=== PATIENT | male | born 1995 | race Caucasian/White ===

== ENCOUNTER → 2020-05-16 09:14 | Outpatient (CLI) | payer OTHER, SELFPAY ==
[2020-05-16 09:41] LABS: Hematocrit 44.6 % (40-54); Hemoglobin 15.1 g/dL (13.0-16.5); Mean Corp Hgb Conc 33.9 g/dL (32-36); Mean Corpuscular Hgb 30.7 pg (27.0-32.0); Mean Corpuscular Volume 90.7 fL (80-94); Mean Platelet Vol. 9.5 fl (6.2-12.0); Platelet Count 212 K/mm3 (150-450); RBC Distribution Width CV 12.2 % (11.6-14.6); RBC Distribution Width SD 40.4 fl (35.1-43.9); Red Blood Count 4.92 M/mm3 (4.6-6.2); White Blood Count 4.5 K/mm3 (4.4-11.0)
[2020-05-16 10:40] LABS: Anion Gap 4 (5-15); BUN 28 mg/dL (7-18); BUN/Creat Ratio 24.8 RATIO (10-20); Chloride 109 mmol/L (98-107); Creatinine, Serum 1.13 mg/dL (0.70-1.30); EST Glomerular Filtration Rate 84 mL/min (>60); Est Glom Filt Rate - Afr Amer 101 mL/min (>60); Glucose 92 mg/dL (74-106); Potassium 4.4 mmol/L (3.5-5.1); Sodium Level 140 mmol/L (136-145); Thyroid Stim Hormone (TSH) 0.91 uIU/mL (0.358-3.74)
== END ==
PROVIDERS: PCP Family Medicine; Referring Provider Family Medicine; Visit Provider Family Medicine
DX: R06.00 Dyspnea, unspecified (principal)
CPT/HCPCS: 36415; 80048; 84443; 85027

== ENCOUNTER → 2020-05-19 09:04 | Outpatient (CLI) | payer OTHER, SELFPAY ==
--- NOTE | 2020-05-19 09:11 | ECHOD_ITS ---
Reason For Study: Dyspnea on exertion Procedure This was a 2D Doppler, Color Flow transthoracic echocardiogram. Exam performed in department. Left Ventricle Normal LV size. Left ventricular systolic function is normal. The estimated ejection fraction is 65 %. Normal diastology for age. No regional wall motion abnormalities noted. Right Ventricle Normal RV size. Normal systolic function. Atria Normal left atrium. Normal right atrium. Mitral Valve Normal mitral valve. Tricuspid Valve Normal tricuspid valve. Mild tricuspid valve insufficiency. Pulmonary artery systolic pressure is 30 mmHg. Aortic Valve Normal aortic valve. Trisinus/trileaflet aortic valve. Pulmonic Valve Normal pulmonic valve. Great Vessels Normal aortic root. The pulmonary artery is normal size. Normal inferior vena cava. Pericardium/Pleural No pericardial effusion. MMode/2D Measurements & Calculations LVIDd: 4.8 cm IVSd: 1.0 cm Ao root diam: 3.3 cm LVIDs: 2.7 cm LVPWd: 0.93 cm LA dimension: 3.9 cm FS: 43.8 % LAV(MOD-bp): 54.7 ml LA A4 area: 18.2 cm2 RA A4 area: 19.6 cm2 LAV(MOD-bp) Indexed: 26.8 ml/m2 LAV(MOD-sp2): 57.8 ml LAV(MOD-sp4): 46.3 ml Time Measurements MV dec time: 0.21 sec Doppler Measurements & Calculations MV E max kevin: 84.2 cm/sec Lat Peak E' Kevin: 18.7 cm/sec Med Peak E' Kevin: 14.2 cm/sec MV A max kevin: 47.6 cm/sec E/E' lat: 4.5 E/E' med: 5.9 MV E/A: 1.8 MV V2 max: 88.4 cm/sec MV P1/2t max kevin: 88.4 cm/sec Ao V2 max: 154.1 cm/sec MV max P.1 mmHg MV P1/2t: 83.8 msec Ao max P.5 mmHg MV V2 mean: 41.7 cm/sec MV dec slope: 309.1 cm/sec2 MV mean P.87 mmHg MVA(P1/2t): 2.6 cm2 MV V2 VTI: 27.6 cm LV V1 max: 140.4 cm/sec PA V2 max: 124.2 cm/sec TR max kevin: 260.2 cm/sec LV V1 max P.9 mmHg TR max P.1 mmHg Interpretation Summary Normal LV size. Left ventricular systolic function is normal. The estimated ejection fraction is 65 %. Normal diastology for age. Pulmonary artery systolic pressure is 30 mmHg. Structurally normal valves. Ordering Physician: Joseph Gray Referring Physician: Joseph Gray Performed By: Taz Mckeon RCS
== END ==
PROVIDERS: PCP Family Medicine; Referring Provider Family Medicine; Visit Provider Family Medicine
DX: R06.00 Dyspnea, unspecified (principal)
CPT/HCPCS: 93306

== ENCOUNTER → 2020-05-27 06:24 | Outpatient (CLI) | payer OTHER, SELFPAY ==
--- NOTE | 2020-05-27 07:57 | STRESSREP ---
Stress Test Report Date: 05-27-2020 Procedure: Exercise tolerance test/imaging study Indications: Chest pain; fatigue; dizziness Consent: Per the patient Procedure: The patient exercised on a Ton protocol for 12 minutes completing Stage IV achieving a peak heart rate of 173 bpm (88% predicted maximal heart rate) with a peak blood pressure 184/66 mmHg and a peak MET capacity of 13 METs. The baseline ECG demonstrated normal sinus rhythm. The peak exercise ECG demonstrated no obvious ECG changes. There were no cardiac dysrhythmias pretest, during exercise, or recovery. The functional capacity was considered good. There was a report of mild chest pain in early recovery with subsequent spontaneous resolution. The examination was discontinued secondary to dyspnea. Impression: 1. Technically adequate (percent predicted maximal heart rate greater than 85%) exercise tolerance test 2. Peak exercise ECG with no obvious ECG changes 3. There were no cardiac dysrhythmias pretest, during exercise, or recovery 4. Nuclear images pending Myocardial perfusion imaging study: Technique: The patient was injected with 11.9 mCi of technetium 99m Cardiolite and subsequently rest SPECT Cardiolite nuclear imaging was obtained in the horizontal long, vertical long, and short axis views. The patient exercised on a Ton protocol for 12 minutes completing Stage IV achieving a peak heart rate of 173 bpm (88% predicted maximal heart rate) with a peak blood pressure 184/66 mmHg and a peak MET capacity of 13 METs. The patient was injected with 32.1 mCi of technetium 99m Cardiolite and subsequently stress SPECT Cardiolite nuclear imaging was obtained in the horizontal long, vertical long, and short axis views. A gated Cardiolite study at peak stress was obtained. Interpretation: Rest and stress SPECT Cardiolite nuclear imaging status post realignment, normalization, and attenuation correction, demonstrates the appearance of extracardiac/gastrointestinal tracer uptake near the inferior segments more prominent at rest as opposed to stress and the appearance of relative uniform tracer uptake and myocardial perfusion appearing within normal limits. There is end systolic thickening and brightening. The gated Cardiolite study demonstrates myocardial thickening and inward wall motion. The reported LVEF is 62%. Impression: 1. Rest and stress SPECT Cardiolite nuclear imaging demonstrate relative uniform tracer uptake and myocardial perfusion appearing within normal limits. 2. The gated Cardiolite study reports an LVEF of 62%. This note was generated with [employer] software. It may contain incorrect words, spelling, and punctuation that were not noted in checking the note before signing.
== END ==
PROVIDERS: PCP Family Medicine; Referring Provider Family Medicine; Visit Provider Family Medicine
DX: R07.9 Chest pain, unspecified (principal)
CPT/HCPCS: 78452; 93017; A9500; A4216

== ENCOUNTER → 2020-07-11 14:52 | Outpatient (CLI) | payer OTHER, SELFPAY ==
[2020-07-03 10:10] VITALS: BMI 30.7
--- NOTE | 2020-07-11 15:00 | RAD_ITS ---
STUDY: X-RAY CHEST REASON FOR EXAM: Male, 24 years old. SOB TECHNIQUE: 2 views COMPARISON: None. FINDINGS: The lungs are clear and expanded. There is no demonstrated pleural abnormality. Normal size heart. Normal mediastinum and ryne. Normal visualized pulmonary arteries. Normal visualized aortic arch and descending thoracic aorta. Normal visualized thoracic spine. Normal visualized ribs, clavicles, and shoulders. There is no demonstrated abnormality of the visualized soft tissue structures of the upper abdomen. RAD/Chest PA and Lateral IMPRESSION: Normal x-ray examination of the chest. Electronically Signed: Sheron Mckeon MD at 15:46 EDT , Service support ,
== END ==
PROVIDERS: PCP Family Medicine; Referring Provider Nurse Practitioner Family; Visit Provider Nurse Practitioner Family
DX: R06.00 Dyspnea, unspecified (principal)
CPT/HCPCS: 71046

== ENCOUNTER → 2020-08-01 07:52 | Outpatient (CLI) | payer OTHER, SELFPAY ==
[2020-07-03 10:10] VITALS: BMI 30.7
--- NOTE | 2020-08-01 07:55 | CT_ITS ---
STUDY: CT CHEST WITH CONTRAST REASON FOR EXAM: Male, 24 years old. Dyspnea on exertion RADIATION DOSAGE (If Supplied By Facility): CTDIvol = ( 15.65 ) mGy, DLP = ( 554.90 ) mGycm TECHNIQUE: Transaxial imaging was performed following intravenous administration of IV 100mL Isovue-300. Multiplanar coronal and sagittal images were reformatted. Individualized dose optimization techniques were used for this CT. COMPARISON: None. FINDINGS: The lungs are normal. There is no demonstrated pleural abnormality. Normal heart and pericardium. Normal mediastinum. Normal hilar regions. Normal enhanced pulmonary arteries. Normal aorta arch and descending thoracic aorta. Normal osseous structures. There is no demonstrated abnormality of the visualized upper abdomen. CT/Chest WITH Contrast IMPRESSION: Normal enhanced CT Chest examination. Electronically Signed: João Vale MD at 10:43 EDT , Service support ,
--- NOTE | 2020-08-03 07:55 | PFT ---
INTRODUCTION: The patient is a 24-year-old male that presents for pulmonary function studies secondary to a diagnosis of dyspnea. Respiratory therapy reports good patient effort. Bronchodilators were used during testing. INTERPRETATION: Forced expiration spirometry demonstrates no evidence of a large airways obstructive ventilatory defect. There was no significant response to aerosolized bronchodilators. Spirograms are of good quality and plateau normally. The respiratory flow volume loop is normal. Body plethysmography was performed and reveals lung volumes to be within normal limits. Diffusing capacity by single breath CO is also within normal limits. IMPRESSION: Grossly normal pulmonary function studies.
== END ==
PROVIDERS: PCP Family Medicine; Visit Provider Internal Medicine Cardiovascular Disease
DX: R06.00 Dyspnea, unspecified (principal); R00.2 Palpitations; R42 Dizziness and giddiness
CPT/HCPCS: 71260; 93225; 94060; 94726; 94729; Q9967

== ENCOUNTER 2020-09-08 16:42 | Emergency (ER) | payer OTHER, SELFPAY ==
[2020-07-03 10:10] VITALS: BMI 30.7
[2020-09-08 16:43] VITALS: BP 143/79; PULSE 65; RESP 16; TEMP 36.8; O2SAT 98; BMI 30.4
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
[2020-09-08 17:35] LABS: Absolute Lymphocyte Count 1.76 X10^3/uL (0.83-4.51); Absolute Neutrophil Count 3.4 X10^3/uL (2.0-7.7); Basophil# 0.06 X10^3/uL; Eosinophil# 0.29 X10^3/uL; Eosinophils% 4.8 % (0-5); Hematocrit 47.2 % (40-54); Hemoglobin 15.9 g/dL (13.0-16.5); Lymphocyte # 1.76 X10^3/ul (0.83-4.51); Lymphocyte % 28.9 % (19-41); Mean Corp Hgb Conc 33.7 g/dL (32-36); Mean Corpuscular Hgb 30.6 pg (27.0-32.0); Mean Corpuscular Volume 90.8 fL (80-94); Mean Platelet Vol. 9.9 fl (6.2-12.0); Monocyte# 0.55 X10^3/uL; NRBC Flagged by Analyzer 0 % (0-5); Neutrophil # 3.42 X10^3/uL (2.7-7.7); Neutrophil % 56.1 % (47-70); Platelet Count 239 K/mm3 (150-450); RBC Distribution Width CV 12.2 % (11.6-14.6); RBC Distribution Width SD 40.4 fl (35.1-43.9); White Blood Count 6.1 K/mm3 (4.4-11.0)
[2020-09-08 17:48] LABS: Anion Gap 4 (5-15); BUN 17 mg/dL (7-18); BUN/Creat Ratio 15.3 RATIO (10-20); Calcium,Total 9.7 mg/dL (8.5-10.1); Chloride 105 mmol/L (98-107); Creatinine, Serum 1.11 mg/dL (0.70-1.30); EST Glomerular Filtration Rate 85 mL/min (>60); Est Glom Filt Rate - Afr Amer 103 mL/min (>60); Estimated Creatinine Clearance 98.42 ml/min; Glucose 96 mg/dL (74-106); Potassium 3.6 mmol/L (3.5-5.1); Sodium Level 140 mmol/L (136-145)
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
--- NOTE | 2020-09-08 19:02 | ED.RN ---
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
[2020-09-08] MEDS: Acetaminophen 500 MG Tablet 1000 MG PO (19:42)
[2020-09-08 20:01] VITALS: PULSE 62; RESP 16; TEMP 36.3; O2SAT 98
== END 2020-09-08 20:02 | disposition home or self-care (01) ==
PROVIDERS: Emergency Provider Emergency Medicine; PCP Family Medicine
DX: S06.0X0A Concussion without loss of consciousness, initial encounter (principal); S20.219A Contusion of unspecified front wall of thorax, initial encounter; S40.012A Contusion of left shoulder, initial encounter; Y92.410 Unspecified street and highway as the place of occurrence of the external cause; V53.5XXA Driver of pick-up truck or van injured in collision with car, pick-up truck or van in traffic accident, initial encounter; Y99.9 Unspecified external cause status; Q63.1 Lobulated, fused and horseshoe kidney
CPT/HCPCS: 70450; 71260; 72125; 74177; 80048; 85025; 99284; Q9967

== ENCOUNTER 2022-03-30 01:34 | Emergency (ER) | payer OTHER, SELFPAY ==
[2022-03-30 01:34] VITALS: BP 154/97; PULSE 87; RESP 16; TEMP 36.6; O2SAT 97; BMI 33.0
[2022-03-30] MEDS: Gabapentin 300 MG Capsule PO (02:26)
[2022-03-30] MEDS: predniSONE 20 MG Tablet 40 MG PO (02:26)
[2022-03-30] MEDS: diazePAM 5 MG Tablet PO (02:26)
--- NOTE | 2022-03-30 02:35 | ED.VIS.BACK ---
HPI History of Present Illness Chief Complaint: Back Informant: patient Narrative Narrative: Worsening lower back pain this evening. He works laying concrete. States had mild symptoms 6 days ago. Symptoms worse with movement. Symptoms progressing over the last few days went to chiropractor yesterday. States attempted adjustments. He states had x-rays done in the chiropractor office reporting narrowing at L4-L5. He states this evening he noted some transient pain into his right thigh down to his great toe. Denies weakness. Denies loss of bowel or bladder control. Took 2 rounds of ibuprofen last dose was 5 hours ago. Denies any allergies. States had mild back pain in the past however less significant. Prior similar symptoms: Yes [facility] Medical History (Updated 03/30/22 @ 02:[address] Kimo Viera DO) Dyspnea on exertion Home Medications diazepam 5 mg tablet 5 mg PO Q8 PRN Muscle Spasm #12 tabs 03/30/22 [Rx Last Taken Unknown] dupilumab 300 mg/2 mL subcutaneous pen injector (Dupixent) 300 mg subcut QWEEK 03/30/22 [History Last Taken Unknown] gabapentin 300 mg capsule 300 mg PO QHS #30 caps 03/30/22 [Rx Last Taken Unknown] prednisone 20 mg tablet 40 mg PO DAILY #10 tabs 03/30/22 [Rx Last Taken Unknown] Allergy/AdvReac Type Severity Reaction Status Date / Time No Known Allergies Allergy Unverified 03/30/22 01:38 Family History Father Hypertension Diabetes CAD (coronary artery disease) Surgical History no surgical history Social History Smoking Status: Never smoker alcohol intake: current details: occasional substance use type: does not use caffeine: Yes Type: coffee Number of servings: 3 ROS ROS ED Constitutional Constitutional ED: Denies chills, fever(s) or sweats Eyes Eyes: Denies change in vision ENT ENT ED: Denies dysphagia or sore throat Cardiovascular Cardiovascular: Denies chest pain, leg edema, palpitations or racing heartbeat Respiratory/Chest Respiratory/Chest: Denies cough, dyspnea or dyspnea on exertion Gastrointestinal Gastrointestinal: Denies abdominal pain, diarrhea, nausea or vomiting Genitourinary Genitourinary ED: Denies dysuria, hematuria or urinary frequency Musculoskeletal Musculoskeletal: Reports back pain; Denies extremity pain or neck pain Integumentary Denies rash or wounds Neurologic Neurologic: Denies headache(s), paresthesias or weakness EXAM Physical Exam Const Vital Signs: 03/30/22 01:34 Temperature 97.8 F Temperature Source Temporal Pulse Rate 87 Respiratory Rate 16 Blood Pressure 154/97 H Blood Pressure Mean 116 Pulse Ox 97 Oxygen Delivery Method Room Air Positive well nourished and well developed Constitutional Narrative: Uncomfortable with movement. Nontoxic. General Appearance ED: well developed HEENT Reports moist mucous membranes normocephalic and atraumatic Eyes PERRL, EOMs intact bilaterally and conjunctivae normal General Eye ED: Yes normal appearance of both eyes Neck no lymphadenopathy and supple General: Negative for tenderness Chest Wall Chest: Negative for tenderness Resp normal respiratory effort and normal air movement Effort and Inspection: symmetric chest movement; Negative for respiratory distress Cardio regular rate, regular rhythm and no murmurs Peripheral Pulses: pulses 2+ throughout GI normal to inspection, nondistended, normoactive bowel sounds and non-tender Palpation: Negative for guarding or rebound tenderness present Back/Spine no CVA tenderness Back/Spine Narrative: No midline tenderness. Tender palpation paralumbar. Straight leg test was negative bilaterally. 1+ patellar reflex bilaterally. Extremity normal to inspection General Extremety ED: Negative for edema or tenderness General Extremity: Negative for edema Neuro oriented x3 and no sensory deficits noted Sensorium / Orientation: awake and alert Skin no rashes or lesions noted and no wounds MDM MDM MDM Narrative Medical decision making narrative: Patient with no cauda equina symptoms. Reporting sciatica symptoms down the right side. Reported outpatient x-ray at chiropractor L4-L5 narrowing. He has no weakness. 1+ patellar reflex. Discussed potential disc herniation with sciatica symptoms with his history. He is able to ambulate. He will be treated symptomatically. He will continue ibuprofen at 600 mL every 6 hours. Started on steroids muscle relaxer and gabapentin due to radicular symptoms. He will follow-up with his PCP. Work note was given. He declines Worker's Compensation at this time. He will discuss with his work for restrictions. All questions were answered. Discharge Plan Triage Chief Complaint: Back ED Provider: Kimo Viera Dx/Rx/DC Orders Clinical Impression: Lumbago with sciatica, right side, Back pain Instructions: ED Sciatica Prescriptions: New prednisone 20 mg tablet 40 mg PO DAILY Qty: 10 0RF gabapentin 300 mg capsule 300 mg PO QHS Qty: 30 0RF diazepam [diazepam] 5 mg tablet 5 mg PO Q8 PRN (Reason: Muscle Spasm) Qty: 12 0RF No Action Dupixent Pen 300 mg/2 mL pen injector 300 mg SUBCUT QWEEK Primary Care Provider: Joseph Gray Referrals: Joseph Gray MD [Primary Care Provider] - 3-5 Days Activity Restrictions/Additional Instructions: Continue your ibuprofen total of 600 mg every 6 hours. Take additional prescription medicines as prescribed. Follow-up with your doctor. Disposition Disposition: Home, Self Care Discharge Date/Time: 03/30/22 03:08
== END 2022-03-30 03:08 | disposition home or self-care (01) ==
PROVIDERS: Emergency Provider Emergency Medicine; PCP Family Medicine; Visit Provider Emergency Medicine
DX: M54.41 Lumbago with sciatica, right side (principal); Z79.52 Long term (current) use of systemic steroids
CPT/HCPCS: 99283

== ENCOUNTER → 2022-04-10 | Outpatient (CLI) | payer OTHER, SELFPAY ==
--- NOTE | 2022-04-10 08:20 | MRI_ITS ---
STUDY: MRI LUMBAR SPINE WITHOUT CONTRAST REASON FOR EXAM: Male, 26 years old. Lumbar strain with radiculopathy TECHNIQUE: Standardized fat and water weighted pulse sequences were obtained in the sagittal and axial planes. COMPARISON: CT abdomen and pelvis with contrast 09/08/2020. FINDINGS: T11-T12 and T12-L1: (Sagittal only). Normal endplates. Normal disc height, hydration and morphology. No ventral extradural defects. Normal central canal and bilateral intervertebral neural foramina. Normal lumbar lordosis. There is no substantial scoliosis. Normal conus medullaris that terminates at the lower L1 vertebral body level. L1-2: Normal endplates. Normal disc height, hydration and morphology. Normal bilateral facet joints. Normal central canal and bilateral lateral recesses. Normal bilateral intervertebral neural foramina. L2-3: Normal endplates. Normal disc height, hydration and morphology. Minimal degenerative cyst in the posterior aspect of the left facet joint. Normal right facet joint. Normal central canal and bilateral lateral recesses. Normal bilateral intervertebral neural foramina. L3-4: Normal endplates. Normal disc height, hydration and morphology. Normal bilateral facet joints. Normal central canal and bilateral lateral recesses. Normal bilateral intervertebral neural foramina. L4-5: Normal endplates. Mild disc space height narrowing. Small right posterior bulging annulus. Normal facet joints. Normal central canal and bilateral lateral recesses. Normal bilateral intervertebral neural foramina. L5-S1: Normal endplates. Mild disc space height narrowing. Normal facet joints. Small left posterior bulging annulus. Normal facet joints. Normal central canal and bilateral lateral recesses. Normal bilateral intervertebral neural foramina. Normal visualized sacral ala. Normal visualized paraspinous soft tissue structures. MRI/Spine Lumbar (Routine) IMPRESSION: 1. No MRI evidence of lumbar extruded disc fragment, spinal stenosis or nerve root displacement. 2. Small right L4-L5 posterior bulging annulus. 3. Small left L5-S1 posterior bulging annulus. 4. Minimal degenerative cyst in the posterior aspect of the left L2-L3 facet joint. Electronically Signed: Sree Lowe MD at 13:16 EST ,
== END | disposition home or self-care (01) ==
LOC: MRI 07:51
PROVIDERS: PCP Family Medicine; Visit Provider Physician Assistant Surgical
DX: S39.012A Strain of muscle, fascia and tendon of lower back, initial encounter (principal); M47.816 Spondylosis without myelopathy or radiculopathy, lumbar region; M51.36 Other intervertebral disc degeneration, lumbar region
CPT/HCPCS: 72148

== ENCOUNTER 2022-06-10 13:30 | Outpatient (RCR) | payer OTHER, SELFPAY ==
--- NOTE | 2022-05-24 16:15 | HP.PTEVAL ---
Patient's Visit Information ELSA STRICKLAND is a 26 year old M referred to Physical Therapy by LINDA Mg with a diagnosis of LUMBAR STRAIN AND DISC BULGING L4-L5. Date of Evaluation: 05/24/22 Physical Therapist: Tricia Bae, PT, Cert MDT - Visit Plan Frequency: 2-3x /Week Duration: 4-6 Weeks Plan: AQUATIC THERAPY FOR PAIN RELIEF, POSTURE CORRECTION/STRENGTHENING, INSTRUCTION IN APPROPRIATE BODY MECHANICS AND ACTIVITY MODIFICATIONS. DLS STARTING WITH A NEUTRAL SPINE PROGRESSING ROM TOLERATED. ANNE-MARIE LE ROM, STRETCHING AND STRENGTHENING. HEP INSTRUCTION. - Subjective Work/Leisure: [employer]. OFF SINCE MAR 30 2022. TENTATIVE RTW DATE IS APPROX 06/25/22. Disability: NO. Present symptoms: CENTRAL AND ANNE-MARIE LOW BACK/SACRUM PAIN (SOMETIMES RIGHT AND SOMETIMES L). PATIENT DENIES LEG SX'S. Present since: 03/24/23. Pain Scale: WORST 5/10, LEAST 3/10. Currently: 4/10. Is it getting better, worse or staying the same: STAYING THE SAME. Commenced as a result of: BENT OVER WORK AND FELT BACK START TO GET TIGHT BUT KEPT GOING. WENT TO WORK THE REST OF THE WEEK BUT PAIN GOT WORSE AND HE COULD BARELY WALK. Symptoms at onset: BACK TIGHTENED UP. Worse: BENDING, WALKING, LIFTING, EVEN SITTING. Better: LAYING DOWN ON BACK OR SIDES. Disturbed sleep: YES. Previous history/Previous treatment: UNREMARKABLE BUT DOES HAVE HX OF SOME INTERMITTENT CHIROPRACTIC BUT NONE FOR ABOUT 2 YEARS BEFORE THIS INJURY. Treatment this episode: CHIRO X 1 VISIT SINCE THIS INJURY - NO BENEFIT REPORTED. MASSAGE THERAPY X 4 SINCE INJURY - IT DEFINATELY LOOSENS IT AND IT FEELS BETTER FOR A LITTLE WHILE BUT THEN I TIGHTEN RIGHT BACK UP. STATES HE HAS TRIED A FEW PAIN MEDICINES WITH SOME BENEFIT. NO LONGER TAKING ANY PRESCRIPTION OR OTC MEDICATIONS PER PATIENT REPORT. CONSULT WITH DR. QUEVEDO - PATIENT REPORTS DR. QUEVEDO RECOMMENDED TRYING PT FOR 4-6 WKS AND DOESN'T FEEL SURGERY IS NECESSARY. STATES DR. QUEVEDO SAID THEY MIGHT NEED TO CONSIDER INJECTION IF NOT BETTER WITH PT. Coughing/sneezing/straining: POSITIVE. Gait: I CAN'T TAKE BIG OF A STEP WITH MY RIGHT LEG. Bowel or Bladder Dysfunction: NO. Accidents: NO. Unexplained weight loss: NO. Imaging: RECENT LUMBAR MRI: STUDY: MRI LUMBAR SPINE WITHOUT CONTRAST. REASON FOR EXAM: Male, 26 years old. Lumbar strain with radiculopathy. TECHNIQUE: Standardized fat and water weighted pulse sequences were. obtained in the sagittal and axial planes. COMPARISON: CT abdomen and pelvis with contrast 09/08/2020. . FINDINGS: T11-T12 and T12-L1: (Sagittal only). Normal endplates. Normal disc height,. hydration and morphology. No ventral extradural defects. Normal central. canal and bilateral intervertebral neural foramina. Normal lumbar lordosis. There is no substantial scoliosis. Normal conus. medullaris that terminates at the lower L1 vertebral body level. L1-2: Normal endplates. Normal disc height, hydration and morphology. Normal bilateral facet joints. Normal central canal and bilateral lateral. recesses. Normal bilateral intervertebral neural foramina. L2-3: Normal endplates. Normal disc height, hydration and morphology. Minimal degenerative cyst in the posterior aspect of the left facet joint. Normal right facet joint. Normal central canal and bilateral lateral. recesses. Normal bilateral intervertebral neural foramina. L3-4: Normal endplates. Normal disc height, hydration and morphology. Normal bilateral facet joints. Normal central canal and bilateral lateral. recesses. Normal bilateral intervertebral neural foramina. L4-5: Normal endplates. Mild disc space height narrowing. Small right. posterior bulging annulus. Normal facet joints. Normal central canal and. bilateral lateral recesses. Normal bilateral intervertebral neural. foramina. L5-S1: Normal endplates. Mild disc space height narrowing. Normal facet. joints. Small left posterior bulging annulus. Normal facet joints. Normal. central canal and bilateral lateral recesses. Normal bilateral. intervertebral neural foramina. Normal visualized sacral ala. Normal visualized paraspinous soft tissue structures. . MRI/Spine Lumbar (Routine). IMPRESSION: 1. No MRI evidence of lumbar extruded disc fragment, spinal stenosis or. nerve root displacement. . 2. Small right L4-L5 posterior bulging annulus. . 3. Small left L5-S1 posterior bulging annulus. . 4. Minimal degenerative cyst in the posterior aspect of the left L2-L3. facet joint. . Electronically Signed: Sree Lowe MD. . PMH/Recent major surgery: UNREMARKABLE. - Objective Sitting/Standing Posture: FAIR. NORMAL LUMBAR LORDOSIS AND NO RELEVANT LATERAL SHIFT. Active Correction of posture: WORSE. Other Observations: INDEP GAIT INTO PT WITHOUT AD OR LOB. SYMMETRICAL WEIGHT BEARING TIME BUT DECREASED ANNE-MARIE STRIDE LENGTH. Sensory deficit: ANNE-MARIE LE LIGHT TOUCH SENSATION IS GROSSLY INTACT AND SYMMETRICAL. ROM deficit: TIGHT ANNE-MARIE HS'S L > RIGHT. Motor deficit: ANNE-MARIE LE'S GROSSLY 5/5 WITH MMT'ING. Reflexes: 2/3 ANNE-MARIE LE'S. Dural Signs: POSITIVE ANNE-MARIE LE'S LEFT > RIGHT. Lumbar mvmt loss: flex - NELLIE. ext - MOD. R SG - MIN. L SG - MIN. PATIENT C/O INCREASED LBP WITH LUMBAR FLEX TESTING RIGHT AWAY AND WITH EXT AT THE END OF THE AVAILABLE ROM. Core strength: FAIR. Palpation: NO ACUTE TENDERNESS WITH LIGHT PALPATION OF LOWER THORACIC, LUMBAR, SACRAL OR ANNE-MARIE HIP AREAS. TREATMENT: NEUROMUSCULAR REEDUCATION - RETRAINING OF MVMT AND POSTURE FOR SITTING, LYING AND STANDING ACTIVITIES. - Balance/Special Test Scores Oswestry Low Back Score: 12 - Goals Goal 1:: DECREASE C/O ANNE-MARIE LB/SACRAL PAIN Goal Time Frame: 4-6 Weeks Goal 2:: IMPROVE PERSONAL CARE, LIFTING, SITTING, STANDING, SOCIAL LIFE, TRAVEL AND WORK/HOMEMAKING FUNCTION Goal Time Frame: 4-6 Weeks Goal 3:: INSTRUCT IN PROPHYLAXIS Goal Time Frame: 4-6 Weeks - Anticipated Interventions Patient/Client Instruction: Educate patient on: Condition, Plan of Care, Risk Factors For the Purpose of:: To improve self management Therapeutic Exercise to Include: Strength training, Body mechanics, Postural training, Flexibilty training, Gait and locomotor training, Neuromotor development, In an aquatic setting, Dynamic Lumbar Stabilization For the Purpose of:: To decrease pain, To increase ROM, To improve muscle performance and motor function, To increase tolerance to activity/condition/position, To improve ability of physical actions for home/community/work/leisure, To improve gait and locomotor functions Thank you for the opportunity to evaluate your patient. For Medicare and Medicare HMO plans, please review the plan of care and approve it. It will need to be FAXED BACK to us at [phone] for Medicare purposes. For Medicare only, by signing this I certify the plan of care. Please let me know if there are questions or concerns regarding this plan of care. Physician Signature: Date:
--- NOTE | 2022-06-10 13:54 | HP.PTREVAL ---
LINDA Mg, It has been my pleasure to treat ELSA STRICKLAND over the last 8 visits for LUMBAR STRAIN AND DISC BULGING L4-L5. Please see the progress note below for an update on the physical therapy plan of care! Subjective: PATIENT REPROTS HE STILL FEELS ALMOST EXACTLY THE SAME HE DID BEFORE HE STARTED PT. STATES HE HAS BEEN DOING EX'S TO TRY TO HELP THIS EVER SINCE HE GOT HURT AND THEY DON'T HURT BUT THEY AREN'T HELPING. HE STATES HIS BACK STILL SUCKS. FOLLOW UP WITH KATRIN VALDEZ PENDING TOMORROW AND NOTHING SCHEDULED FOR FOLLOW UP WITH DR. SAE CRUZ. Objective/Function: PATIENT WAS SEEN TODAY FOR RE-ASSESSMENT OF PROGRESS TOWARD THE SET PT GOALS AND THE NEED FOR FURTHER PHYSICAL THERAPY VS READINESS FOR DISCHARGE. PATIENT IS NOT PROGRESSING AND PHYSICIAN RE-ASSESSMENT IS RECOMMENDED. UPON EXAM TODAY: Sensory deficit: ANNE-MARIE LE LIGHT TOUCH SENSATION IS GROSSLY INTACT AND SYMMETRICAL. ROM deficit: TIGHT R LE HS'S. Motor deficit: ANNE-MARIE LE'S GROSSLY 5/5 WITH MMT'ING. Reflexes: 2/3 ANNE-MARIE LE'S. Dural Signs: NEGATIVE R AND POSITIVE L LE. Lumbar mvmt loss: flex - NELLIE. ext - MOD. R SG - MIN. L SG - MIN. PATIENT C/O INCREASED LBP WITH LUMBAR FLEX TESTING RIGHT AWAY AND WITH EXT AT THE END OF THE AVAILABLE ROM. Core strength: FAIR. Palpation: NO ACUTE TENDERNESS WITH LIGHT PALPATION OF LOWER THORACIC, LUMBAR, SACRAL OR ANNE-MARIE HIP AREAS. OTHER: PATIENT ABLE TO HEEL WALK AND TOE WALK AT LEAST 5 FEET WITHOUT UE ASSIST. Plan Plan: HOLD PT PENDING PHYSICIAN RE-ASSESSMENT. Balance/Gait/Functional tests - Balance/Special Test Scores Oswestry Low Back Score: 15 Goals Goal 1:: DECREASE C/O ANNE-MARIE LB/SACRAL PAIN Goal Time Frame: 4-6 Weeks Goal Progress: Not Progressing Goal 2:: IMPROVE PERSONAL CARE, LIFTING, SITTING, STANDING, SOCIAL LIFE, TRAVEL AND WORK/HOMEMAKING FUNCTION Goal Time Frame: 4-6 Weeks Goal Progress: Not Progressing Goal 3:: INSTRUCT IN PROPHYLAXIS Goal Time Frame: 4-6 Weeks Goal Progress: Not Progressing Anticipated Interventions Patient/Client Instruction: Educate patient on: Condition, Plan of Care, Risk Factors For the Purpose of:: To improve self management Therapeutic Exercise to Include: Strength training, Body mechanics, Postural training, Flexibilty training, Gait and locomotor training, Neuromotor development, In an aquatic setting, Dynamic Lumbar Stabilization For the Purpose of:: To decrease pain, To increase ROM, To improve muscle performance and motor function, To increase tolerance to activity/condition/position, To improve ability of physical actions for home/community/work/leisure, To improve gait and locomotor functions Please do not hesitate to contact me at [phone] by phone or if you have questions or concerns regarding this new plan of care! Sincerely, Tricia Bae, PT, Cert MDT
--- NOTE | 2022-07-21 11:37 | HP.PT.NRP ---
ELSA JAQUELIN STRICKLAND was seen in my office for initial evaluation on 05/24/22. The following Plan of Care was established for this patient: Initial Frequency: 2-3x /Week Initial Duration: 4-6 Weeks Patient/Client Instruction: Educate patient on: Condition, Plan of Care, Risk Factors For the Purpose of:: To improve self management Therapeutic Exercise to Include: Strength training, Body mechanics, Postural training, Flexibilty training, Gait and locomotor training, Neuromotor development, In an aquatic setting, Dynamic Lumbar Stabilization For the Purpose of:: To decrease pain, To increase ROM, To improve muscle performance and motor function, To increase tolerance to activity/condition/position, To improve ability of physical actions for home/community/work/leisure, To improve gait and locomotor functions This patient was last seen in our office 06/10/22. Pertinent comments regarding their Physical therapy will appear below: This patient has not returned to Physical Therapy and is appropriate to return to MD for further follow-up as needed. At this point I will be discontinuing this patient from physical therapy. I would be happy to see this patient again in the future if found appropriate by the physician. Thank you! Tricia Bae, PT, Cert MDT Balance/Gait/Functional tests - Balance/Special Test Scores Oswestry Low Back Score: 15
== END 2022-06-10 19:00 | disposition home or self-care (01) ==
LOC: PT 13:30
PROVIDERS: PCP Family Medicine; Referring Provider Physician Assistant Surgical; Visit Provider Physician Assistant Surgical
DX: M51.36 Other intervertebral disc degeneration, lumbar region (principal); S39.012D Strain of muscle, fascia and tendon of lower back, subsequent encounter
CPT/HCPCS: 97112; 97113; 97162; 97164

== ENCOUNTER → 2022-11-19 | Outpatient (CLI) | payer OTHER, SELFPAY ==
[2022-11-19 15:10] LABS: Absolute Lymphocyte Count 2.08 X10^3/uL (0.83-4.51); Absolute Neutrophil Count 3.1 X10^3/uL (2.0-7.7); Basophil# 0.05 X10^3/uL; Basophil% 0.8 % (0-1); Eosinophil# 0.17 X10^3/uL; Eosinophils% 2.8 % (0-5); Hematocrit 47.2 % (40-54); Hemoglobin 15.4 g/dL (13.0-16.5); Lymphocyte # 2.08 X10^3/ul (0.83-4.51); Lymphocyte % 34.8 % (19-41); Mean Corp Hgb Conc 32.6 g/dL (32-36); Mean Corpuscular Hgb 30.3 pg (27.0-32.0); Mean Corpuscular Volume 92.7 fL (80-94); Mean Platelet Vol. 10.5 fl (6.2-12.0); Monocyte# 0.53 X10^3/uL; Monocyte% 8.9 % (0-10); NRBC Flagged by Analyzer 0 % (0-5); Neutrophil # 3.12 X10^3/uL (2.7-7.7); Neutrophil % 52.2 % (47-70); Platelet Count 222 K/mm3 (150-450); RBC Distribution Width SD 41.1 fl (35.1-43.9); Red Blood Count 5.09 M/mm3 (4.6-6.2)
[2022-11-19 15:32] LABS: ALB/GLOB Ratio 1.1 RATIO (0.9-2.4); AST(SGOT) 20 U/L (15-37); Alanine Aminotransfer ALT/SGPT 30 U/L (16-61); Alkaline Phosphatase 119 U/L (45-117); Anion Gap 6 (5-15); BUN 18 mg/dL (7-18); BUN/Creat Ratio 17.3 RATIO (10-20); Calcium,Total 9.3 mg/dL (8.5-10.1); Chloride 107 mmol/L (98-107); Creatinine, Serum 1.04 mg/dL (0.70-1.30); EST Glomerular Filtration Rate 90 mL/min (>60); Est Glom Filt Rate - Afr Amer 109 mL/min (>60); Globulin 3.6 g/dL (2.2-4.2); Glucose 94 mg/dL (74-106); Potassium 3.8 mmol/L (3.5-5.1); Protein, Total 7.6 g/dL (6.4-8.2); Sodium Level 139 mmol/L (136-145)
== END | disposition home or self-care (01) ==
PROVIDERS: PCP Family Medicine; Visit Provider Family Medicine
DX: R10.9 Unspecified abdominal pain (principal)
CPT/HCPCS: 36415; 80053; 85025

== ENCOUNTER 2022-12-10 18:11 | Emergency (ER) | payer OTHER, SELFPAY ==
[2022-12-10 18:14] VITALS: BP 143/91; PULSE 72; RESP 16; TEMP 36.7; O2SAT 98; BMI 31.8
--- NOTE | 2022-12-10 18:27 | EX.ED.DYSGE1 ---
HPI <LINDA Trujillo - Last Filed: 12/10/22 20:58> History of Present Illness Chief Complaint: Dizziness Narrative Narrative: 27-year-old male with no past medical history presents with several different complaints. Over the last 4 months he has had upper abdominal pain and nausea. He states he does have occasional heartburn but he did not really feel like this. Over the last month he has had generalized head pressure and brain fog with difficulty focusing. He saw his PCP about 2 weeks ago and had blood work showing elevated liver enzymes. He states his symptoms worsened over the last couple days and the headache peaked about 2 days ago and when he called his doctor this afternoon he recommended he go to the ED. He denies visual changes or focal motor or sensory changes. No fever or upper respiratory symptoms. He does not take any medications and denies smoking. He drinks alcohol infrequently. PFSH <LINDA Trujillo - Last Filed: 12/10/22 20:58> [facility] Medical History (Updated 12/10/22 @ 20:50 by LINDA Trujillo) Dyspnea on exertion Home Medications meloxicam 15 mg tablet mg 12/10/22 [History Last Taken Unknown] ondansetron 4 mg disintegrating tablet 4 mg PO Q8H PRN PRN Nausea #10 tabs 12/10/22 [Rx Last Taken Unknown] Allergy/AdvReac Type Severity Reaction Status Date / Time niacin Allergy Rash Verified 12/10/22 18:13 Family History Father Hypertension Diabetes CAD (coronary artery disease) Social History Smoking Status: Never smoker alcohol intake: current details: occasional substance use type: does not use caffeine: Yes Type: coffee Number of servings: 3 ROS <LINDA Trujillo - Last Filed: 12/10/22 20:58> ROS ED ROS Narrative Constitutional: Negative for fever, chills, malaise. Eyes: Negative for visual change. CVS: Negative for palpitations, chest pain, syncope. Respiratory: Negative for shortness of breath, cough. GI: Positive for abdominal pain, nausea. Negative for vomiting, diarrhea, constipation, melena, hematochezia. : Negative for dysuria. Neuro: Positive for headache, negative for motor/sensory dysfunction. EXAM <LINDA Trujillo - Last Filed: 12/10/22 20:58> Physical Exam Narrative Exam Narrative: CONST: Patient sitting in no acute distress. EYES: Normal inspection. PERRLA, EOMI. ENT: Normal inspection, moist mucous membranes. NECK: Normal inspection. RESP: No respiratory distress, CTAB. CVS: Regular rate and rhythm, no murmur, no gallop. ABD: Soft with minimal midline epigastric tenderness, no guarding or rebound, nondistended, no hepatosplenomegaly. SKIN: Color normal, no rash, warm, dry, intact. EXTREMITIES: Normal appearance, no pedal edema. NEURO: Oriented x4. PSYCH: Normal affect. Const Vital Signs: 12/10/22 18:14 12/10/22 18:37 12/10/22 21:00 Temperature 98.1 F Temperature Source Temporal Pulse Rate 72 50 L Respiratory Rate 16 15 Respiratory Effort Normal Non-Labored Blood Pressure 143/91 H 133/78 H Blood Pressure Mean 108 Pulse Ox 98 100 <Dr. Steve Taylor, DO - Last Filed: 12/10/22 21:27> Physical Exam Const Vital Signs: 12/10/22 18:14 12/10/22 18:37 12/10/22 21:00 Temperature 98.1 F Temperature Source Temporal Pulse Rate 72 50 L Respiratory Rate 16 15 Respiratory Effort Normal Non-Labored Blood Pressure 143/91 H 133/78 H Blood Pressure Mean 108 Pulse Ox 98 100 [facility] <LINDA Trujillo - Last Filed: 12/10/22 20:58> [facility] Narrative Medical decision making narrative: History gathered from: Patient and significant other Patient has had 4 months of nausea and upper abdominal pain and about a month of head pressure and brain fog. He appears well and nontoxic. Vital signs unremarkable. Regarding his headache he is neurologically intact and has no signs of meningismus. CT brain was obtained and shows no acute findings. He had minimal epigastric pain on exam with no peritoneal signs. CBC, CMP, lipase are all unremarkable. He has no RUQ tenderness and negative Mckenna sign so I do not think he needs an emergent ultrasound. I discussed wide differential including GERD, PUD, biliary colic among others. I prescribed Zofran as this helped his nausea here and recommended OTC pain relievers and follow-up with his primary care doctor. He was agreeable with this plan and discharged in stable condition. Lab Data Attestation: I reviewed the patient's lab results. Labs: Laboratory Results - last 24 hr 12/10/22 18:35 WBC 4.4 RBC 4.87 Hgb 14.8 Hct 44.3 MCV 91.0 MCH 30.4 MCHC 33.4 RDW Std Deviation 39.9 RDW Coeff of Bin 11.9 Plt Count 219 MPV 10.2 Immature Gran % (Auto) 0.000 Neut % (Auto) 49.4 Lymph % (Auto) 36.8 [place] % (Auto) 11.1 H Eos % (Auto) 2.0 Baso % (Auto) 0.7 Absolute Neuts (auto) 2.2 Absolute Lymphs (auto) 1.62 Nucleated RBC % 0 Sodium 139 Potassium 3.8 Chloride 107 Carbon Dioxide 28.0 Anion Gap 4 L BUN 17 Creatinine 1.17 Estim Creat Clear Calc 94.00 Est GFR (MDRD) Af Amer 95 Est GFR (MDRD) Non-Af 79 BUN/Creatinine Ratio 14.5 Glucose 91 Calcium 9.6 Total Bilirubin 0.60 AST 17 ALT 24 Alkaline Phosphatase 98 Total Protein 7.3 Albumin 4.3 Globulin 3.0 Albumin/Globulin Ratio 1.4 Lipase 23 Radiography Diagnostic Testing: Clinical Impression(s) from Imaging Studies Brain CT 12/10/22 19:45 IMPRESSION: Negative head/brain CT without intravenous contrast. There has been no change from the reference exam. Electronically Signed: Vijay Jiménez MD at 20:28 EDT , <Dr. Steve Taylor, DO - Last Filed: 12/10/22 21:27> [facility] Lab Data Labs: Laboratory Results - last 24 hr 12/10/22 18:35 WBC 4.4 RBC 4.87 Hgb 14.8 Hct 44.3 MCV 91.0 MCH 30.4 MCHC 33.4 RDW Std Deviation 39.9 RDW Coeff of Bin 11.9 Plt Count 219 MPV 10.2 Immature Gran % (Auto) 0.000 Neut % (Auto) 49.4 Lymph % (Auto) 36.8 [place] % (Auto) 11.1 H Eos % (Auto) 2.0 Baso % (Auto) 0.7 Absolute Neuts (auto) 2.2 Absolute Lymphs (auto) 1.62 Nucleated RBC % 0 Sodium 139 Potassium 3.8 Chloride 107 Carbon Dioxide 28.0 Anion Gap 4 L BUN 17 Creatinine 1.17 Estim Creat Clear Calc 94.00 Est GFR (MDRD) Af Amer 95 Est GFR (MDRD) Non-Af 79 BUN/Creatinine Ratio 14.5 Glucose 91 Calcium 9.6 Total Bilirubin 0.60 AST 17 ALT 24 Alkaline Phosphatase 98 Total Protein 7.3 Albumin 4.3 Globulin 3.0 Albumin/Globulin Ratio 1.4 Lipase 23 Radiography Diagnostic Testing: Clinical Impression(s) from Imaging Studies Brain CT 12/10/22 19:45 IMPRESSION: Negative head/brain CT without intravenous contrast. There has been no change from the reference exam. Electronically Signed: Vijay Jiménez MD at 20:28 EDT , Treatment and Re-Evaluation :: I have personally performed a face to face assessment of the patient and have reviewed the CLHOÉ Note. I performed a substantive portion of the visit including all aspects of the following. My beltran findings include: History: Patient presents with upper abdominal pain and head ache that has been constant for the past 3 weeks. Patient states his headache feels like a pressure. Patient states his abdominal pain feels more like a dull ache. Patient admits to some nausea and decreased appetite. Patient denies any vomiting. Patient denies any diarrhea or constipation. Patient denies any radiation of his pain. Patient denies any diplopia. Patient states his vision is out of focus at times. Patient admits to some mild neck pain. Patient denies any dysuria or hematuria. Exam: Vital signs are stable. Patient is afebrile. Patient is in no acute distress. Oral mucosa is pink and moist. Neck is supple. Trachea is midline. Pupils are equal, round, and reactive to light bilaterally. Extraocular muscles are intact. There is no tenderness to percussion over the frontal or maxillary sinuses. Heart was regular rate and rhythm. Lungs are clear and equal bilaterally. Abdomen is soft. Bowel sounds are normal. There is mild tenderness over the epigastric area. There is no rebound or guarding noted. Cranial nerves II through XII are intact. There are no focal motor or sensory deficits noted. Medical Decision Making: Differential diagnosis includes gastritis, gastric ulcer, duodenal ulcer, pancreatitis, sinusitis, viral illness, and stroke. CT scan of the brain will be obtained to assess for stroke and intracranial bleeding. CBC will be obtained to assess for leukocytosis and anemia. Comprehensive metabolic profile will be obtained to assess for hepatic function, renal function, and electrolyte abnormality. Lipase will be obtained to assess for pancreatitis. COVID-19 antigen will be obtained to assess for COVID-19 infection. Influenza A and influenza B antigens will be obtained to assess for influenza infection. CBC was reviewed and was within normal limits. Comprehensive metabolic profile was reviewed and was within normal limits. Lipase was reviewed and was normal. Influenza A and influenza B antigens were reviewed and were negative. COVID-19 rapid antigen was reviewed and was negative. CT scan of the brain was obtained. There is no acute intracranial abnormality. This was interpreted by the radiologist and was also independently reviewed by myself. Patient was advised of his findings. Patient was instructed to follow-up with his primary care physician in 5 to 7 days for further evaluation. Patient understood and was agreeable with the plan. All questions were answered. Discharge Plan Triage Chief Complaint: Dizziness ED Midlevel Provider: Any Marino ED Provider: Steve Taylor Dx/Rx/DC Orders Clinical Impression: Chronic headache, Abdominal pain Instructions: Abdominal Pain, Self-Care for Headaches Prescriptions: New ondansetron 4 mg tablet,disintegrating 4 mg PO Q8H PRN PRN (Reason: Nausea) Qty: 10 0RF No Action meloxicam 15 mg tablet Patient Comments: TAKE 1 TABLET BY MOUTH ONCE DAILY WITH FOOD Primary Care Provider: Annalise Peterson Referrals: Annalise Peterson MD [Primary Care Provider] - Activity Restrictions/Additional Instructions: Today all of your testing including a CT brain scan looked within normal limits. I recommend following up with your primary care doctor. Regarding your frequent upper abdominal pain this may be GERD or gallbladder related and I recommend dietary changes and [id number] Pepcid or omeprazole as needed. Disposition Disposition: Home, Self Care Discharge Date/Time: 12/10/22 21:07
[2022-12-10] MEDS: Ondansetron 4 MG/2 ML Vial IV (18:35)
[2022-12-10 18:55] LABS: Absolute Lymphocyte Count 1.62 X10^3/uL (0.83-4.51); Absolute Neutrophil Count 2.2 X10^3/uL (2.0-7.7); Basophil# 0.03 X10^3/uL; Basophil% 0.7 % (0-1); Eosinophil# 0.09 X10^3/uL; Hematocrit 44.3 % (40-54); Hemoglobin 14.8 g/dL (13.0-16.5); Lymphocyte # 1.62 X10^3/ul (0.83-4.51); Lymphocyte % 36.8 % (19-41); Mean Corp Hgb Conc 33.4 g/dL (32-36); Mean Corpuscular Hgb 30.4 pg (27.0-32.0); Mean Platelet Vol. 10.2 fl (6.2-12.0); Monocyte# 0.49 X10^3/uL; Monocyte% 11.1 % (0-10); NRBC Flagged by Analyzer 0 % (0-5); Neutrophil # 2.17 X10^3/uL (2.7-7.7); Neutrophil % 49.4 % (47-70); Platelet Count 219 K/mm3 (150-450); RBC Distribution Width CV 11.9 % (11.6-14.6); RBC Distribution Width SD 39.9 fl (35.1-43.9); Red Blood Count 4.87 M/mm3 (4.6-6.2); White Blood Count 4.4 K/mm3 (4.4-11.0)
[2022-12-10 19:20] LABS: ALB/GLOB Ratio 1.4 RATIO (0.9-2.4); AST(SGOT) 17 U/L (15-37); Alanine Aminotransfer ALT/SGPT 24 U/L (16-61); Albumin, Serum 4.3 g/dL (3.2-5.0); Alkaline Phosphatase 98 U/L (45-117); Anion Gap 4 (5-15); BUN 17 mg/dL (7-18); BUN/Creat Ratio 14.5 RATIO (10-20); Calcium,Total 9.6 mg/dL (8.5-10.1); Chloride 107 mmol/L (98-107); Creatinine, Serum 1.17 mg/dL (0.70-1.30); EST Glomerular Filtration Rate 79 mL/min (>60); Est Glom Filt Rate - Afr Amer 95 mL/min (>60); Glucose 91 mg/dL (74-106); Lipase 23 U/L (13-75); Potassium 3.8 mmol/L (3.5-5.1); Protein, Total 7.3 g/dL (6.4-8.2); Sodium Level 139 mmol/L (136-145)
--- NOTE | 2022-12-10 19:45 | CT_ITS ---
EXAM: CT HEAD WITHOUT INTRAVENOUS CONTRAST CLINICAL INDICATION: headache TECHNIQUE: Multiple axial images were obtained of the head without intravenous contrast. This CT exam was performed using one or more of the following dose reduction techniques: automated exposure control, adjustment of the mA and/or kV according to patient size, and/or use of iterative reconstruction technique. COMPARISON: 09/08/2020 FINDINGS: BRAIN AND EXTRA-AXIAL SPACES: Unremarkable. No intra- or extra-axial hemorrhage. No evidence of acute infarct. No intracranial mass or mass effect. There is preservation of the leonardo/white matter interface. Posterior fossa structures are unremarkable. Ventricles are appropriate for age. No hydrocephalus. Basal cisterns are patent. BONES/JOINTS: Unremarkable. No discrete lytic or blastic abnormalities. SINUSES: Unremarkable as visualized. Clear. MASTOID AIR CELLS: Unremarkable. Clear. ORBITS: Visualized globes, extraocular muscles, optic nerves and retrobulbar fat appear unremarkable. CT/Brain/Head without Contrast IMPRESSION: Negative head/brain CT without intravenous contrast. There has been no change from the reference exam. Electronically Signed: Vijay Jiménez MD at 20:28 EDT ,
[2022-12-10] MEDS: Ketorolac 15 MG/ML Vial IV (20:58)
[2022-12-10 21:00] VITALS: BP 133/78; PULSE 50; RESP 15; O2SAT 100
== END 2022-12-10 21:07 | disposition home or self-care (01) ==
PROVIDERS: Physician Assistant; Emergency Provider Emergency Medicine; PCP Family Medicine; Visit Provider Emergency Medicine
DX: R42 Dizziness and giddiness (principal); R51.9 Headache, unspecified; R10.9 Unspecified abdominal pain; R11.0 Nausea
CPT/HCPCS: 70450; 80053; 83690; 85025; 87428; 96374; 96375; 99283; A4216; J2405

== ENCOUNTER → 2023-08-22 | Outpatient (CLI) | payer OTHER, SELFPAY ==
--- NOTE | 2023-08-22 14:02 | RAD_ITS ---
STUDY: X-RAY - LUMBOSACRAL SPINE REASON FOR EXAM: Male, 27 years old. Back pain. TECHNIQUE: 7 view(s) of the lumbosacral spine, including lateral flexion and extension views, were obtained. COMPARISON: MRI of the lumbar spine dated 04/10/2022. FINDINGS: Normal lumbar lordosis. No substantial scoliosis. Normal alignment of the vertebral bodies. Mild diffuse lower thoracic and lumbosacral facet sclerosis. Minimal endplate irregularity of the superior aspect of L4, likely representing a Schmorl''s node. Limited flexion and extension with no abnormal motion. Normal visualized soft tissue structures. RAD/L/S Spine w Bend Min 6 Vw IMPRESSION: Limited flexion and extension with no abnormal motion. No other abnormality of the visualized lower thoracic and lumbosacral spine. Electronically Signed: Sal Casanova MD at 11:45 EDT ,
--- NOTE | 2023-08-22 14:25 | RAD_ITS ---
STUDY: X-RAY - PELVIS REASON FOR EXAM: Male, 27 years old. Other intervertebral disc displacement TECHNIQUE: One view of the pelvis was obtained. COMPARISON: None. FINDINGS: There is a non-specific bowel gas pattern. Normal visualized soft tissue structures. Normal bilateral iliac wings, sacroiliac joints and visualized sacrum. Normal visualized bilateral superior and inferior pubic rami. Normal pubic symphysis. Normal ischial tuberosities. Normal visualized right femoral head. Normal right acetabulum. Normal right hip joint. Normal visualized left femoral head. Normal left acetabulum. Normal left hip joint. RAD/Pelvis 1 or 2 Views IMPRESSION: Normal x-ray examination of the pelvis. Electronically Signed: Mumtaz Brown MD at 16:34 EDT ,
== END | disposition home or self-care (01) ==
PROVIDERS: PCP Family Medicine
DX: M51.27 Other intervertebral disc displacement, lumbosacral region (principal); M51.26 Other intervertebral disc displacement, lumbar region
CPT/HCPCS: 72114; 72170

== ENCOUNTER → 2023-11-23 | Outpatient (CLI) | payer MEDICAID, SELFPAY | END | disposition home or self-care (01) | PROVIDERS: PCP Family Medicine; Referring Provider Physician Assistant; Visit Provider Physician Assistant | DX: J02.9 Acute pharyngitis, unspecified (principal) | CPT/HCPCS: 87070; 87077 ==

== ENCOUNTER 2024-02-15 09:30 | Outpatient (RCR) | payer OTHER, MEDICAID, SELFPAY ==
--- NOTE | 2024-01-05 12:40 | HP.PTEVAL ---
Patient's Visit Information Visit Information Visit Information: ELSA STRICKLAND is a 28 year old M referred to Physical Therapy by Mumtaz Warner with a diagnosis of Lumbar disc herniation L4/L5 and L5/S1 DOS: 12/09/23. Date of Evaluation: 01/05/24 Physical Therapist: Josh Barillas DPT Visit Plan Frequency: 3x /Week Duration: 6 Weeks Plan: Start with slight progressive ROM of lumbar spine, HS and hip flexor stretching. Core strengthening initially in neutral spine progressing to dynamic strengthening. Progress as able. Subjective Subjective: Pt. is here today for his initial evaluation with diagnosis of lumbar disc herniation of L4/L5 and L5/S1 on 03/16. Pt. ultimately had surgery DOS 12/09/23. Pt had what he reports having a bone removal to free up space in his L4/S1. He reports having overall decreased symptoms, but still has surgical pain. Pt. has no distal LE symptoms, no issues with leg giving out on him. Pt. still has stiffness in AMs. Pt. had been working in the [employer] business, but has been off of work since initial injury~2 years ago. Pt. is no longer taking any of his pain meds. More recently stopped taking his meloxicam. Pt. is sleeping okay. He is to start [facility] at some point as well. He is hopeful to get back to playing recreational sporting activities without limitations. Pain Lumbar spine: Pain Intensity (Out of 10): 1 Comment: surgical pain Objective Objective: POSTURE: Pt. has decent posture in stance. No major lordosis or kyphosis noted. Equal iliac crest heights. PALPATION: Pt. has healing incision. Pt. does have a little scabbing at top of incision, no signs of infection. NEURO: Pt. has normal sensation in BLEs. Pt. has has normal DTR of BLEs. ROM: L/S: flexion min loss, ext min/mod loss MMT: RLE: knee: ext 56.6#, flexion 33.8#, hip: flexion 22.1#, abd 53.0# LLE: ext 46.6#, flexion 33.0#, hip: flexion 27.1#, abd 49.1# Core strength: poor+. GAIT: Pt. has no issues with his gait pattern. Pt. has slight limited arm swing, but relatively okay. STAIRS: Normal without issues. Balance/Special Test Scores Oswestry Low Back Score: 12 Goals Goal 1:: LTG: Pt. to be I with HEP for lumbar ROM and strengthening. Goal Time Frame: 4-6 Weeks Goal 2:: STG: Pt. sleep throughout the night without increase in symptoms. Goal Time Frame: 2-4 Weeks Goal 3:: LTG: Pt. to have increased BLE strength by10# throughout. Goal Time Frame: 4-6 Weeks Goal 4:: LTG: Pt. to have increased lumbar ROM to full without increase in L/S pain. Goal Time Frame: 4-6 Weeks Goal 5:: LTG: Pt. to be able to walk 1 mile without increase in lumbar spine symptoms. Goal Time Frame: 4-6 Weeks Rehabilitation Potential Physical Therapy Diagnosis: Pt. has signs and symptoms consistent with Lumbar disc herniation L4/L5 and L5/S1 DOS: 12/09/23. Pt. has subsequent hypomobility, weakness, increased pain and difficulty with ADLs and work activities. Rehabilitation Potential: Excellent Anticipated Interventions Patient/Client Instruction: Educate patient on: Condition, Plan of Care, Risk Factors and Benefits of Fitness Program For the Purpose of:: To improve decision making, To facilitate caregiver knowledge, To improve self management, To prevent re-injury, To improve ability to perform tasks related to life management and To improve tolerance to ADL's Therapeutic Exercise to Include: Strength training, Power training, Postural training, Flexibilty training, Passive ROM, Active ROM, Dynamic Lumbar Stabilization and Megan Exercises For the Purpose of:: To decrease pain, To increase ROM, To improve nutrient delivery to tissue, To increase oxygenation perfusion, To improve muscle performance and motor function, To improve ability to perform ADL's, To increase tolerance to activity/condition/position, To improve health of tissue, To decrease soft tissue restriction, To increase flexibility/ROM and To improve endurance Text: Thank you for the opportunity to evaluate your patient. For Medicare and Medicare HMO plans, please review the plan of care and approve it. It will need to be FAXED BACK to us at [phone] for Medicare purposes. For Medicare only, by signing this I certify the plan of care. Please let me know if there are questions or concerns regarding this plan of care. Physician Signature: Date:
--- NOTE | 2024-02-15 10:23 | HP.PTDCSUM ---
Discharge Summary D/C summary: It has been my pleasure to treat ELSA STRICKLAND referred by Mumtaz Warner, with the diagnosis of Lumbar disc herniation L4/L5 and L5/S1 DOS: 12/09/23 for a total of 16 visit(s). Discharge Date: 02/15/24 Please see the following information for a summary of their discharge status. Subjective Subjective: Pt. is here for his re assessment. Pt. was overall doing very well, He reported being ~70% better overall. He did however having some localized back pain Pain Lumbar spine: Pain Intensity (Out of 10): 0 Overall Improvement % Improvement: 70 Objective Objective/Function: POSTURE: Pt. has good posture in stance. No major abnormality noted. PALPATION: pt. has some tenderness at L3 region with gentle PAs. No pain with erector spinae palpation. No radicular symptoms with PAs. NEURO: normal sensation, normal DTR of bLEs. ROM: LUMBAR SPINE: flexion min/nil loss mild icnrease NW, ext nil loss NE, SB nil loss bilat NE, rotation nil loss bilat NE. Pt. has normal HS length. - slump testing as well. MMT: 5/5 strength throughout BLEs and core. GAIT: normal, He reports to be walking unlimited distances without issues. squatting normal no issues. Pt. appears to have a flare of issues after doing some light raking the other day. Pt. is slowly improving back to his levels of last week. I advised him to be protective for a few days then ease back into his exercises. Pt. consents to this. If not doing better I told him to check back in with his physician. Goals Goal 1:: LTG: Pt. to be I with HEP for lumbar ROM and strengthening. Goal Progress: Goal Met Goal 2:: STG: Pt. sleep throughout the night without increase in symptoms. Goal 3:: LTG: Pt. to have increased BLE strength by10# throughout. Goal Progress: Goal Met Goal 4:: LTG: Pt. to have increased lumbar ROM to full without increase in L/S pain. Goal Progress: Goal Met Goal 5:: LTG: Pt. to be able to walk 1 mile without increase in lumbar spine symptoms. Goal Progress: Goal Met Plan Plan: Pt. to be DC from PT at this point in time. D/C Information d/c sentence: If there are questions or concerns regarding this patient's physical therapy, please feel free to call me at [phone]. Thank you for the referral of this patient. Sincerely, Josh Barillas, DPT Balance/Gait/Functional tests Balance/Special Test Scores Oswestry Low Back Score: 9 Improvement % Improvement: 70
== END 2024-02-15 19:00 | disposition home or self-care (01) ==
LOC: PT 09:30
PROVIDERS: PCP Family Medicine; Referring Provider Orthopaedic Surgery; Visit Provider Orthopaedic Surgery
DX: M51.26 Other intervertebral disc displacement, lumbar region (principal)
CPT/HCPCS: 97110; 97140; 97161; 97530

== ENCOUNTER → 2024-05-10 | Outpatient (CLI) | payer MEDICAID, SELFPAY | END | disposition home or self-care (01) | LOC: LABSPEC 12:28 | PROVIDERS: PCP Family Medicine; Referring Provider Physician Assistant Surgical; Visit Provider Physician Assistant Surgical | DX: R52 Pain, unspecified (principal); R50.9 Fever, unspecified ==

== ENCOUNTER 2024-05-25 13:18 | Emergency (ER) | payer MEDICAID, SELFPAY ==
[2024-05-25 13:19] VITALS: BP 137/88; PULSE 89; RESP 18; TEMP 37.2; O2SAT 98; BMI 31.1
--- NOTE | 2024-05-25 13:44 | CT_ITS ---
PROCEDURE: BRAIN/HEAD WITHOUT CONTRAST; SPINE CERVICAL WITHOUT CONTRAS REASON FOR EXAM: Trauma. TECHNIQUE: Noncontrasted CT of the head, with sagittal and coronal reconstructed images, and also noncontrasted CT of the cervical spine, with sagittal coronal reconstructed images. COMPARISON: Head CT of 12/10/2022. FINDINGS: Near-complete opacification of the right frontal sinus is seen, with probable air-fluid level, as well. Mild mucosal thickening is seen of the visualized portion of the right maxillary sinus. The remaining paranasal sinuses appear clear, as do the mastoid air cells. No fracture site is evident. No intracranial hemorrhage, mass, or mass effect is seen. Ventricles appear symmetric and within the normal range. No extra-axial fluid collection is noted. No orbital pathology is noted. Cervical spine: No fracture is seen. No significant arthritic process or disc narrowing is noted. No subluxation or prevertebral soft tissue swelling is noted. CT/Spine Cervical without Contras IMPRESSION: 1. Acute and chronic paranasal sinusitis. 2. No intracranial hemorrhage or other acute intracranial process is seen. 3. No cervical fracture or subluxation is evident. One or more dose reduction techniques were used (e.g., Automated exposure contr ol, adjustment of the mA and/or kV according to patient size, use of iterative reconstruction technique). Reading Location: [id number]
--- NOTE | 2024-05-25 13:47 | NURSING ---
NO OLD EKGS
[2024-05-25] MEDS: fentaNYL 100 MCG/2 ML Ampul 50 MCG IV (13:53)
[2024-05-25 14:33] VITALS: BP 139/80; PULSE 83; RESP 17; O2SAT 96
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
[2024-05-25] MEDS: Ketorolac 15 MG/ML Vial IV (16:14)
== END 2024-05-25 16:37 | disposition home or self-care (01) ==
PROVIDERS: Emergency Provider Emergency Medicine; PCP Family Medicine; Visit Provider Emergency Medicine
DX: S16.1XXA Strain of muscle, fascia and tendon at neck level, initial encounter (principal); S60.519A Abrasion of unspecified hand, initial encounter; S10.91XA Abrasion of unspecified part of neck, initial encounter; V46.0XXA Car driver injured in collision with other nonmotor vehicle in nontraffic accident, initial encounter
CPT/HCPCS: 70450; 72125; 96374; 96375; 99285; A4216

== ENCOUNTER 2024-06-05 08:01 | Outpatient (RCR) | payer OTHER, MEDICAID, SELFPAY ==
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
== END 2024-06-05 19:00 | disposition home or self-care (01) ==
LOC: OT 08:01
PROVIDERS: PCP Family Medicine
DX: M51.27 Other intervertebral disc displacement, lumbosacral region (principal); M51.26 Other intervertebral disc displacement, lumbar region; S39.012D Strain of muscle, fascia and tendon of lower back, subsequent encounter
CPT/HCPCS: 97750